=== PATIENT | male | born 1985 ===

== ENCOUNTER 2018-06-13 20:43 | Emergency (ER) | payer MEDICAID ==
[2018-06-13 20:57] VITALS: BP 137/83; PULSE 90; RESP 18; TEMP 98.3; O2SAT 100
--- NOTE | 2018-06-13 23:20 | C.PDOC ---
History Of Present Illness 32 year old male presents to the ED c/o right shoulder, right upper back pain. Patient reports tripping and falling backwards against a door frame. Patient c/ o right upper back pain radiating towards his right arm. Patient denies CP, SOB , neck pain, weakness, numbness, LOC. Time Seen by Provider: 06/13/18 21:19 Chief Complaint (Nursing): Upper Extremity Problem/Injury History Per: Patient History/Exam Limitations: no limitations Onset/Duration Of Symptoms: Hrs Current Symptoms Are (Timing): Still Present Quality: "Pain" Exacerbating Factor(s): Movement Recent travel outside of the [place]: No Additional History Per: Patient Past Medical History Reviewed: Historical Data, Nursing Documentation, Vital Signs Vital Signs: Last Vital Signs Temp 98.3 F 06/13/18 20:54 Pulse 90 06/13/18 20:54 Resp 18 06/13/18 20:54 BP 137/83 06/13/18 20:54 Pulse Ox 100 06/14/18 01:20 - Medical History PMH: No Chronic Diseases Surgical History: No Surg Hx Family History: States: Unknown Family Hx - Social History Hx Alcohol Use: No Hx Substance Use: No - Immunization History Hx Tetanus Toxoid Vaccination: No Hx Influenza Vaccination: No Hx Pneumococcal Vaccination: No Review Of Systems Constitutional: Negative for: Fever, Chills Cardiovascular: Negative for: Chest Pain, Palpitations Respiratory: Negative for: Cough, Shortness of Breath Musculoskeletal: Positive for: Shoulder Pain, Arm Pain, Back Pain Skin: Negative for: Rash Neurological: Negative for: Weakness, Numbness Physical Exam - Physical Exam Appears: Non-toxic, No Acute Distress Skin: Normal Color, Warm, Dry Head: Atraumatic, Normacephalic Eye(s): bilateral: Normal Inspection, PERRL Oral Mucosa: Moist Neck: Normal ROM, No Midline Cervical Tenderness, Supple Chest: Symmetrical, No Tenderness Cardiovascular: Rhythm Regular Respiratory: Normal Breath Sounds Extremity: Normal ROM (limited right shoulder due to pain), Tenderness (right shoulder, subscapular area), Capillary Refill (< 2 seconds), No Swelling Pulses: Left Radial: Normal, Right Radial: Normal Neurological/Psych: Oriented x3, Normal Speech, Normal Motor, Normal Sensation Gait: Steady ED Course And Treatment O2 Sat by Pulse Oximetry: 100 (ON RA) Pulse Ox Interpretation: Normal - Other Rad Right shoulder X-ray X-Ray: Interpreted by Me, Viewed By Me Interpretation: No fracture or dislocation Right scapula X-Ray X-Ray: Interpreted by Me, Viewed By Me Interpretation: No fracture or dislocation Progress Note: Plan: - Right shoulder X-Ray. - Right scapualr X-Ray. - Toradol 30 mg IM. Patient was placed on a sling and was advised to follow up with PMD. Reevaluation Time: 00:05 Reassessment Condition: Improved Disposition Counseled Patient/Family Regarding: Diagnosis, Need For Followup, Rx Given - Disposition [facility]errals: [facility] [Outside] Disposition: HOME/ ROUTINE Disposition Time: 23:17 Condition: STABLE Additional Instructions: Take medications as directed Apply ICE pack to area Return to ER if worse Prescriptions: Naproxen [Naprosyn] 1 tab PO BID PRN #25 tab PRN Reason: Pain Instructions: Contusion (DC) Forms: [facility] ([place]), Work Excuse - Clinical Impression Clinical Impression: Contusion of shoulder, right - PA / FORECLOSURE [place] / Resident Statement MD/DO has reviewed & agrees with the documentation as recorded. - Scribe Statement The provider has reviewed the documentation as recorded by the Scribe Fawad Peguero All medical record entries made by the Scribe were at my direction and personally dictated by me. I have reviewed the chart and agree that the record accurately reflects my personal performance of the history, physical exam, medical decision making, and the department course for this patient. I have also personally directed, reviewed, and agree with the discharge instructions and disposition.
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
== END 2018-06-13 23:25 | disposition home or self-care (01) ==
LOC: C.ER 20:43
DX: S40.011A Contusion of right shoulder, initial encounter (principal); W01.198A Fall on same level from slipping, tripping and stumbling with subsequent striking against other object, initial encounter; Y92.9 Unspecified place or not applicable
CPT/HCPCS: 73010; 73030; 96372; 99284; J1885